=== PATIENT | female | born 1935 | race Caucasian/White ===

== ENCOUNTER 2022-05-14 03:36 | Inpatient (IN) | payer OTHER ==
[~2022-05-14] VITALS: Ht 152.4 cm; Wt 75.9 kg
[2022-05-14 04:05] LABS: Basophils # (auto) 0 10 ^3/uL (0-0.2); Basophils % (auto) 0.8 % (0.0-2.0); Eosinophils # (auto) 0.1 10 ^3/uL (0-0.8); Eosinophils % (auto) 1.8 % (0.0-7.0); Hematocrit 41.2 % (36.0-46.0); Hemoglobin 14.1 g/dL (12.2-16.2); Lymphocytes % (auto) 35.8 % (10.0-50.0); Mean Corpuscular Hgb Conc. 34.1 g/dL (32.0-36.0); Mean Corpuscular Volume 93.7 fL (80.0-100.0); Monocytes # (auto) 0.7 10 ^3/uL (0-1.3); Monocytes % (auto) 12.5 % (0.0-12.0); Neutrophils # (auto) 2.8 10 ^3/uL (1.6-8.6); Neutrophils % (auto) 49.1 % (37.0-80.0); Nucleated Red Blood Cells % 0.1 %; Red Cell Distribution Width 13.5 % (11.8-14.3); White Blood Cell 5.6 10^3/uL (4.4-10.8)
[2022-05-14] MEDS ORDERED: ONDANSETRON HCL 4 MG/2 ML VIAL IV ONE (04:15)
[2022-05-14] MEDS ORDERED: MORPHINE SULFATE INJ 2 MG/ml SYRG IV ONE (04:15)
[2022-05-14] MEDS ORDERED: MORPHINE SULFATE 4 MG/ML SYR/VIAL IV ONE (04:15)
[2022-05-14 04:20] LABS: Albumin 3.2 g/dL (3.4-5.0); Calcium 8.6 mg/dL (8.5-10.1); Potassium 3.9 mmol/L (3.5-5.1)
[2022-05-14 04:25] LABS: BUN/Creatinine Ratio 21.1; Bilirubin, Total 0.3 mg/dL (0.2-1.0); Total Protein 6.3 g/dL (6.4-8.2)
[2022-05-14] MEDS ORDERED: MORPHINE SULFATE INJ 2 MG/ml SYRG IV PRN (09:00)
[2022-05-14] MEDS ORDERED: NITROGLYCERIN 0.4 MG SL TAB SL PRN (09:00)
[2022-05-14] MEDS ORDERED: ONDANSETRON HCL 4 MG/2 ML VIAL IV PRN (09:00)
[2022-05-14] MEDS ORDERED: ENOXAPARIN SOD 30 MG/0.3 ML SYRINGE SC SCH (10:00)
[2022-05-14 10:01] LABS: Urine Bacteria MOD /hpf (None Seen); Urine Blood Negative /uL (Negative); Urine Specific Gravity 1.005 (1.001-1.035); Urine WBC 2 /hpf (0 - 5)
[2022-05-14] MEDS ORDERED: METO25TA93 PO (12:50)
[2022-05-14] MEDS ORDERED: LOVA40TA72 PO (12:50)
[2022-05-14] MEDS: ASPirin-EC 81 mg tab PO SCH (13:21)
[2022-05-14] MEDS: FAMOTIDINE 20 MG TAB PO SCH (13:22)
[2022-05-14] MEDS: MECLIZINE HCL 25 MG TAB PO SCH ×2 (13:22→21:52)
[2022-05-14] MEDS: METOPROLOL SUCCINATE XL 50 MG TAB PO SCH (13:22)
[2022-05-14] MEDS: hydrALAZINE HCL 20 MG/ML VL IV SCH ×2 (13:23→18:00)
[2022-05-14 17:04] VITALS: BP 100/54
[2022-05-14 22:00] VITALS: BP 109/54
[2022-05-14] MEDS ORDERED: ATORVASTATIN 20 MG TAB PO SCH (22:00)
[2022-05-15 05:00] VITALS: BP_SYST 119; BP_SYST 132; BP_SYST 135; BP_DIAS 62; BP_DIAS 71; BP_DIAS 85
[2022-05-15] MEDS: hydrALAZINE HCL 20 MG/ML VL IV SCH ×4 (05:37→18:00)
[2022-05-15] MEDS: MECLIZINE HCL 25 MG TAB PO SCH ×2 (05:37→13:41)
[2022-05-15 09:00] VITALS: BP 112/62
[2022-05-15] MEDS ORDERED: ENOXAPARIN SOD 40 MG/0.4 ML SYRINGE SC SCH (10:00)
[2022-05-15] MEDS: ASPirin-EC 81 mg tab PO SCH (10:05)
[2022-05-15] MEDS: FAMOTIDINE 20 MG TAB PO SCH (10:07)
[2022-05-15] MEDS: METOPROLOL SUCCINATE XL 50 MG TAB PO SCH (10:08)
[2022-05-15 13:00] VITALS: BP 111/45
[2022-05-15] MEDS ORDERED: BLOO1KIT56 XX (16:00)
[2022-05-15] MEDS ORDERED: AML5T PO (16:00)
[2022-05-15] MEDS ORDERED: CIPR-173 PO (16:00)
[2022-05-15 16:35] VITALS: BP 148/58
[2022-05-15 17:32] VITALS: BP 112/62
[2022-05-16 09:48] LABS: Folate (Folic Acid) > 24.00 ng/mL (5.38-24)
== END 2022-05-15 18:47 | disposition home or self-care (01) | DRG 305 ==
LOC: ER 03:36 → EDBD 03:36 → TELE 09:00 → TELE-WESTW 12:34 → UNDODISIN 05-15 18:47
PROVIDERS: ADMIT Hospitalist; ATTEND Hospitalist
DX: I16.0 Hypertensive urgency (principal); R42 Dizziness and giddiness; R51.9 Headache, unspecified; R11.0 Nausea; E78.5 Hyperlipidemia, unspecified; Z20.822 Contact with and (suspected) exposure to COVID-19; I25.2 Old myocardial infarction; Z81.8 Family history of other mental and behavioral disorders; Z82.49 Family history of ischemic heart disease and other diseases of the circulatory system; I11.9 Hypertensive heart disease without heart failure
CPT/HCPCS: 36415; 70450; 70551; 80053; 81001; 82607; 82746; 84443; 84484; 85025; 87426; 93005; 95819; 96374; 96375; 97163; G0378; J2405

== ENCOUNTER → 2022-09-22 | Outpatient (CLI) | payer OTHER ==
[~2022-09-22] MED LIST: AML5T PO; BLOO1KIT56 XX; CIPR-173 PO; LOVA40TA72 PO; METO25TA93 PO
[2022-09-22 08:47] LABS: Basophils # (auto) 0.1 10 ^3/uL (0-0.2); Basophils % (auto) 1.2 % (0.0-2.0); Eosinophils # (auto) 0 10 ^3/uL (0-0.8); Hemoglobin 14.7 g/dL (12.2-16.2); Lymphocytes # (auto) 1.3 10 ^3/uL (0.4-5.4); Lymphocytes % (auto) 27.8 % (10.0-50.0); Mean Corpuscular Hemoglobin 30.4 pg (28.0-32.0); Mean Corpuscular Hgb Conc. 32.6 g/dL (32.0-36.0); Mean Corpuscular Volume 93.5 fL (80.0-100.0); Monocytes # (auto) 0.5 10 ^3/uL (0-1.3); Monocytes % (auto) 11.4 % (0.0-12.0); Neutrophils # (auto) 2.8 10 ^3/uL (1.6-8.6); Neutrophils % (auto) 58.6 % (37.0-80.0); Nucleated Red Blood Cells % 0.2 %; Red Blood Cells 4.81 10^6/uL (4.0-5.20); Red Cell Distribution Width 14.4 % (11.8-14.3); White Blood Cell 4.7 10^3/uL (4.4-10.8)
[2022-09-22 09:11] LABS: Urine Bacteria NONE SEEN /hpf (None Seen); Urine Blood Negative /uL (Negative); Urine Mucus FEW (None Seen); Urine Specific Gravity 1.018 (1.001-1.035); Urine WBC 2 /hpf (0 - 5)
[2022-09-22 11:04] LABS: Potassium 4.6 mmol/L (3.5-5.1)
[2022-09-22 11:38] LABS: Albumin 3.3 g/dL (3.4-5.0); BUN/Creatinine Ratio 15.8 (10.0-20.0); Calcium 9.3 mg/dL (8.5-10.1)
[2022-09-22 11:40] LABS: Bilirubin, Total 0.5 mg/dL (0.2-1.0); Total Protein 7.2 g/dL (6.4-8.2)
== END | disposition home or self-care (01) ==
LOC: LAB 08:25
PROVIDERS: ATTEND Internal Medicine
DX: I12.9 Hypertensive chronic kidney disease with stage 1 through stage 4 chronic kidney disease, or unspecified chronic kidney disease (principal); N18.31 Chronic kidney disease, stage 3a; R73.9 Hyperglycemia, unspecified; E78.5 Hyperlipidemia, unspecified
CPT/HCPCS: 36415; 80053; 80061; 81001; 83036; 85025

== ENCOUNTER 2022-12-08 20:05 | Emergency (ER) | payer OTHER ==
[~2022-12-08] VITALS: Ht 157.5 cm; Wt 70.0 kg
[2022-12-08 20:32] LABS: Basophils # (auto) 0 10 ^3/uL (0-0.2); Basophils % (auto) 0.6 % (0.0-2.0); Eosinophils # (auto) 0.1 10 ^3/uL (0-0.8); Eosinophils % (auto) 1.7 % (0.0-7.0); Hemoglobin 14.6 g/dL (12.2-16.2); Lymphocytes # (auto) 1.7 10 ^3/uL (0.4-5.4); Lymphocytes % (auto) 28.5 % (10.0-50.0); Mean Corpuscular Hemoglobin 31.9 pg (28.0-32.0); Mean Corpuscular Hgb Conc. 33.9 g/dL (32.0-36.0); Mean Corpuscular Volume 94.1 fL (80.0-100.0); Monocytes # (auto) 0.6 10 ^3/uL (0-1.3); Monocytes % (auto) 10.5 % (0.0-12.0); Neutrophils # (auto) 3.5 10 ^3/uL (1.6-8.6); Neutrophils % (auto) 58.7 % (37.0-80.0); Nucleated Red Blood Cells % 0.1 %; Red Blood Cells 4.57 10^6/uL (4.0-5.20); Red Cell Distribution Width 14.9 % (11.8-14.3); White Blood Cell 5.9 10^3/uL (4.4-10.8)
[2022-12-08 20:48] LABS: Alanine Aminotransferase 21 U/L (7-40); Albumin 4.3 g/dL (3.2-4.8); Alkaline Phosphatase 93 U/L (46-116); Anion Gap 5 (5-15); Aspartate Aminotransferase 23 U/L (13-40); BUN/Creatinine Ratio 27.8 (10.0-20.0); Blood Urea Nitrogen 27 mg/dL (9-23); Calcium 8.8 mg/dL (8.7-10.4); Carbon Dioxide 27 mmol/L (20-30); Chloride 110 mmol/L (98-107); Glucose 115 mg/dL (74-106); Potassium 4.5 mmol/L (3.5-5.1); Sodium 142 mmol/L (136-145)
[2022-12-08 20:49] LABS: Bilirubin, Total 0.4 mg/dL (0.2-1.0); Total Protein 6.3 g/dL (5.7-8.2)
[2022-12-08 21:43] VITALS: PULSE 59; RESP 17; TEMP 98.5; O2SAT 94
[2022-12-09] MEDS ORDERED: SODIUM CHLORIDE 0.9% 1,000 ML IV ONE
[2022-12-09] MEDS ORDERED: IBUP1TAB5 PO (01:29)
[2022-12-09] MEDS ORDERED: ACET300T58 PO (01:29)
[2022-12-09] MEDS ORDERED: cloNIDine HCL 0.1 MG TAB PO ONE (01:30)
[2022-12-09 01:56] LABS: Urine Bacteria NONE SEEN /hpf (None Seen); Urine Blood Negative /uL (Negative); Urine Clarity Clear (Clear); Urine Color Straw (Yellow); Urine Protein, UAD Negative (Negative); Urine Specific Gravity 1.009 (1.001-1.035); Urine Urobilinogen Normal (Negative); Urine WBC 3 /hpf (0 - 5)
[2022-12-09 02:00] VITALS: BP 157/64; PULSE 63; RESP 21; O2SAT 92
== END 2022-12-09 02:10 | disposition home or self-care (01) ==
LOC: EDBD 20:05 → ER 20:05
DX: S02.831A Fracture of medial orbital wall, right side, initial encounter for closed fracture (principal); I10 Essential (primary) hypertension; I25.2 Old myocardial infarction; E78.5 Hyperlipidemia, unspecified; W19.XXXA Unspecified fall, initial encounter; Y93.89 Activity, other specified; Y92.89 Other specified places as the place of occurrence of the external cause; Y99.8 Other external cause status
CPT/HCPCS: 36415; 70450; 70486; 72125; 80053; 81001; 83880; 84484; 85025; 96360; 99285; J7030

== ENCOUNTER → 2022-12-22 | Outpatient (CLI) | payer OTHER ==
[~2022-12-22] MED LIST changes: +ACET300T58 PO; +IBUP1TAB5 PO
== END | disposition home or self-care (01) ==
LOC: XYW 10:53
PROVIDERS: ATTEND Internal Medicine
DX: I08.0 Rheumatic disorders of both mitral and aortic valves (principal); M79.89 Other specified soft tissue disorders
CPT/HCPCS: 93306

== ENCOUNTER → 2022-12-29 | Outpatient (CLI) | payer OTHER ==
[2022-12-29 15:45] LABS: Anion Gap 5 (5-15); Carbon Dioxide 29 mmol/L (20-30); Chloride 107 mmol/L (98-107); Potassium 4.1 mmol/L (3.5-5.1); Sodium 141 mmol/L (136-145)
[2022-12-29 15:46] LABS: Calcium 8.9 mg/dL (8.5-10.1)
[2022-12-29 15:50] LABS: Glucose 96 mg/dL (74-106)
[2022-12-29 15:51] LABS: BUN/Creatinine Ratio 16.3 (10.0-20.0); Blood Urea Nitrogen 14 mg/dL (9-23)
== END | disposition home or self-care (01) ==
LOC: LAB 14:34
PROVIDERS: ATTEND Internal Medicine
DX: I10 Essential (primary) hypertension (principal)
CPT/HCPCS: 36415; 80048

== ENCOUNTER → 2023-03-06 | Outpatient (CLI) | payer OTHER ==
[~2023-03-06] MED LIST changes: +BUPIVACAINE HCL 0.25% P/F 10 ML VIAL ONE; +IOHEXOL 300 MG/ML 100ML BOTTLE IJ ONE; +LIDOCAINE 2%HCL (LOCAL ANESTH.) INJ 10ml MDV ONE; +methylPREDNISolone ACETATE 80 MG/ML VL ONE
== END | disposition home or self-care (01) ==
LOC: XYW 13:30
PROVIDERS: ATTEND Orthopaedic Surgery Adult Reconstructive Orthopaedic Surgery
DX: M25.511 Pain in right shoulder (principal)
CPT/HCPCS: 20610; 73020; 77002; J1040; J2001; J3490; Q9967

== ENCOUNTER → 2023-04-19 | Outpatient (CLI) | payer OTHER ==
[~2023-04-19] MED LIST changes: -BUPIVACAINE HCL 0.25% P/F 10 ML VIAL ONE; -IOHEXOL 300 MG/ML 100ML BOTTLE IJ ONE; -LIDOCAINE 2%HCL (LOCAL ANESTH.) INJ 10ml MDV ONE; -methylPREDNISolone ACETATE 80 MG/ML VL ONE
[2023-04-19 15:19] LABS: Chloride 107 mmol/L (98-107); Potassium 4.2 mmol/L (3.5-5.1); Sodium 139 mmol/L (136-145)
[2023-04-19 15:20] LABS: Anion Gap 3 (5-15); Carbon Dioxide 29 mmol/L (20-30)
[2023-04-19 15:21] LABS: Calcium 9.2 mg/dL (8.7-10.4)
[2023-04-19 15:25] LABS: BUN/Creatinine Ratio 17.4 (10.0-20.0); Blood Urea Nitrogen 15 mg/dL (9-23); Glucose 104 mg/dL (74-106)
== END | disposition home or self-care (01) ==
LOC: LAB 14:36
PROVIDERS: ATTEND Internal Medicine
DX: N18.2 Chronic kidney disease, stage 2 (mild) (principal); R73.03 Prediabetes
CPT/HCPCS: 36415; 80048; 83036

== ENCOUNTER → 2023-07-21 | Outpatient (CLI) | payer OTHER ==
[2023-07-21 09:15] LABS: Chloride 108 mmol/L (98-107); Potassium 3.9 mmol/L (3.5-5.1); Sodium 142 mmol/L (136-145)
[2023-07-21 09:16] LABS: Anion Gap 7 (5-15); Carbon Dioxide 27 mmol/L (20-30)
[2023-07-21 09:17] LABS: Calcium 9.2 mg/dL (8.5-10.1)
[2023-07-21 09:21] LABS: Glucose 109 mg/dL (74-106)
[2023-07-21 09:22] LABS: BUN/Creatinine Ratio 15.2 (10.0-20.0); Blood Urea Nitrogen 14 mg/dL (9-23)
== END | disposition home or self-care (01) ==
LOC: LAB 08:21
PROVIDERS: ATTEND Internal Medicine
DX: N18.2 Chronic kidney disease, stage 2 (mild) (principal); E55.9 Vitamin D deficiency, unspecified; R73.03 Prediabetes; M19.011 Primary osteoarthritis, right shoulder
CPT/HCPCS: 36415; 80048; 82306; 83036

== ENCOUNTER → 2023-09-12 | Outpatient (CLI) | payer OTHER | END | disposition home or self-care (01) | LOC: LAB 13:01 | PROVIDERS: ATTEND Internal Medicine | DX: R19.7 Diarrhea, unspecified (principal) | CPT/HCPCS: 87045; 87177; 87427; 87493 ==

== ENCOUNTER → 2024-04-05 | Outpatient (CLI) | payer OTHER | END | disposition home or self-care (01) | LOC: LAB 09:53 | PROVIDERS: ATTEND Family Medicine | DX: D48.5 Neoplasm of uncertain behavior of skin (principal) ==

== ENCOUNTER → 2024-05-07 | Outpatient (CLI) | payer OTHER ==
[2024-05-07 09:37] LABS: Basophils # (auto) 0 10 ^3/uL (0-0.2); Basophils % (auto) 0.9 % (0.0-2.0); Eosinophils # (auto) 0.1 10 ^3/uL (0-0.8); Eosinophils % (auto) 1.5 % (0.0-7.0); Hematocrit 46.3 % (36.0-46.0); Hemoglobin 15.1 g/dL (12.2-16.2); Lymphocytes # (auto) 1.7 10 ^3/uL (0.4-5.4); Lymphocytes % (auto) 32.9 % (10.0-50.0); Mean Corpuscular Hemoglobin 30.9 pg (28.0-32.0); Mean Corpuscular Hgb Conc. 32.6 g/dL (32.0-36.0); Mean Corpuscular Volume 94.7 fL (80.0-100.0); Monocytes # (auto) 0.5 10 ^3/uL (0-1.3); Neutrophils # (auto) 2.8 10 ^3/uL (1.6-8.6); Neutrophils % (auto) 54.7 % (37.0-80.0); Nucleated Red Blood Cells % 0.1 %; Platelet Count (auto) 191 10^3/uL (140-450); Red Blood Cells 4.89 10^6/uL (4.0-5.20); Red Cell Distribution Width 14.2 % (11.8-14.3); White Blood Cell 5.1 10^3/uL (4.4-10.8)
[2024-05-07 15:44] LABS: HDL Cholesterol 49 mg/dL (40-59)
[2024-05-07 15:50] LABS: Cholesterol 201 mg/dL (< 200); LDL Cholesterol 122 mg/dL (< 100); Triglycerides 181 mg/dL (< 150)
== END | disposition home or self-care (01) ==
LOC: LAB 09:17
PROVIDERS: ATTEND Internal Medicine
DX: I10 Essential (primary) hypertension (principal); R73.03 Prediabetes
CPT/HCPCS: 36415; 80061; 82306; 84443; 85025

== ENCOUNTER 2024-09-03 08:54 | Outpatient (CLI) | payer OTHER ==
[2024-09-03 09:44] LABS: Alanine Aminotransferase 18 U/L (7-40); Albumin 4.1 g/dL (3.2-4.8); Alkaline Phosphatase 87 U/L (46-116); Anion Gap 8 (5-15); Aspartate Aminotransferase 23 U/L (<34); BUN/Creatinine Ratio 14.7 (10.0-20.0); Bilirubin, Total 0.8 mg/dL (0.2-1.0); Blood Urea Nitrogen 15 mg/dL (9-23); Calcium 9.7 mg/dL (8.7-10.4); Carbon Dioxide 28 mmol/L (20-31); Glucose 102 mg/dL (74-106); Sodium 144 mmol/L (136-145); Total Protein 6.4 g/dL (5.7-8.2)
[2024-09-03 10:17] LABS: Chloride 108 mmol/L (98-107)
== END 2024-09-03 17:00 | disposition home or self-care (01) ==
LOC: LAB 08:54
PROVIDERS: ATTEND Internal Medicine
DX: E78.5 Hyperlipidemia, unspecified (principal); R73.03 Prediabetes
CPT/HCPCS: 36415; 80053; 83036

== ENCOUNTER 2024-12-13 08:56 | Outpatient (CLI) | payer OTHER ==
[2024-12-13 10:46] LABS: Calcium 8.9 mg/dL (8.7-10.4); Potassium 4.2 mmol/L (3.5-5.1); Sodium 143 mmol/L (136-145)
[2024-12-13 10:47] LABS: Anion Gap 8 (5-15); Carbon Dioxide 27 mmol/L (20-31)
[2024-12-13 10:52] LABS: BUN/Creatinine Ratio 13.3 (10.0-20.0); Blood Urea Nitrogen 13 mg/dL (9-23)
[2024-12-13 10:57] LABS: Chloride 108 mmol/L (98-107); Glucose 109 mg/dL (74-106)
== END 2024-12-13 17:00 | disposition home or self-care (01) ==
LOC: LAB 08:56
PROVIDERS: ATTEND Internal Medicine
DX: R73.03 Prediabetes (principal)
CPT/HCPCS: 36415; 80048; 83036